=== PATIENT | female | born 1965 | race Asian ===

== ENCOUNTER → 2025-02-22 | Emergency (ER) | payer BC ==
[~2025-02-22] VITALS: Ht 167.6 cm; Wt 103.4 kg
[~2025-02-22] MED LIST: CIPR500T5 PO
[2025-02-22 18:07] VITALS: BP 154/79; TEMP 97.7; O2SAT 97
== END | disposition home or self-care (01) ==
LOC: ER 17:20
DX: R19.7 Diarrhea, unspecified (principal); I10 Essential (primary) hypertension; E11.9 Type 2 diabetes mellitus without complications